=== PATIENT | female | born 1935 ===

== ENCOUNTER 2020-12-25 07:45 | Inpatient (IN) | payer OTHER ==
[~2020-12-25] VITALS: Ht 160 cm; Wt 68.0 kg
[2020-12-25] MEDS ORDERED: TEGRETOL XR200 MG PO (10:31)
[2020-12-25] MEDS ORDERED: GABAPENTIN400 MG PO (10:31)
[2020-12-25] MEDS ORDERED: TENORMIN50 M1 PO (10:31)
[2020-12-25] MEDS ORDERED: MECLIZINE HCL12.5 MG PO (10:32)
[2020-12-25] MEDS ORDERED: LEVO-T88 MCG PO (10:32)
[2020-12-25] MEDS ORDERED: COZAAR100 MG PO (10:32)
[2020-12-25] MEDS ORDERED: NABUMETONE750 MG PO (10:33)
[2020-12-25] MEDS ORDERED: PRILOSEC OTC20 MG PO (10:33)
[2020-12-25] MEDS ORDERED: SIMVASTATIN10 MG PO (10:34)
[2020-12-25] MEDS ORDERED: ZOVIRAX800 MG PO (10:34)
[2020-12-25] MEDS ORDERED: FOLIC ACID20 MG PO (10:35)
[2020-12-25] MEDS ORDERED: FEOSOL325 MG PO (10:35)
[2021-01-02] MEDS ORDERED: OXYC1TAB9 PO (07:35)
[2021-01-02] MEDS ORDERED: LOVENOX30 MG/0.3 SUBCUTANEO (07:35)
[2021-01-02] MEDS ORDERED: INTEGRA PLUS C1 EACH PO (07:35)
== END 2021-01-02 18:41 | DRG 470 ==
LOC: EDSTATUS 07:45 → ADM 07:45 → SURH 12-31 06:00 → O/R 12-31 06:00 → SURH 12-31 07:00
PROVIDERS: ADMIT Orthopaedic Surgery Sports Medicine; ATTEND Orthopaedic Surgery Sports Medicine
PROC: 0SRD0J9 Replacement of Left Knee Joint with Synthetic Substitute, Cemented, Open Approach (ICD-10-PCS; principal; 2020-12-31 07:00)
DX: M17.12 Unilateral primary osteoarthritis, left knee (principal); I10 Essential (primary) hypertension; E03.8 Other specified hypothyroidism; E78.49 Other hyperlipidemia; Z20.822 Contact with and (suspected) exposure to COVID-19